=== PATIENT | female | born 1940 | race Native Hawaiian/Other Pacific Islander ===

== ENCOUNTER 2017-06-02 14:03 | Outpatient (CLI) | payer OTHER ==
[2017-06-02 14:31] LABS: POTASSIUM 4.8 mmol/L (3.6-5.2)
== END 2017-06-02 15:05 | disposition home or self-care (01) ==
LOC: LAB 14:03
PROVIDERS: Physician Assistant Medical
DX: R53.1 Weakness (principal); E11.22 Type 2 diabetes mellitus with diabetic chronic kidney disease
CPT/HCPCS: 80048